=== PATIENT | male | born 1970 | race African-American/Black ===

== ENCOUNTER 2017-08-12 16:00 | Outpatient (RCR) | payer MEDICARE, OTHER | END 2017-09-04 09:07 | disposition home or self-care (01) | LOC: WSPT 16:00 | DX: S72.8X2D Other fracture of left femur, subsequent encounter for closed fracture with routine healing (principal); S72.8X1D Other fracture of right femur, subsequent encounter for closed fracture with routine healing; S12.9XXD Fracture of neck, unspecified, subsequent encounter; G89.21 Chronic pain due to trauma; V49.9XXD Car occupant (driver) (passenger) injured in unspecified traffic accident, subsequent encounter | CPT/HCPCS: G8978-GP; G8979-GP ==

== ENCOUNTER 2018-04-04 20:25 | Emergency (ER) | payer MEDICARE, MEDICAID ==
[~2018-04-04] VITALS: Ht 177.8 cm; Wt 113.2 kg
[2018-04-04 20:26] VITALS: TEMP 98.9
[2018-04-04] MEDS ORDERED: HCTZ12.5TAB PO (20:32)
[2018-04-04] MEDS ORDERED: MOBIC 7.5MG7.5 MG PO (20:32)
[2018-04-04] MEDS ORDERED: TOPROL XL 25MG25 MG PO (20:32)
[2018-04-04] MEDS ORDERED: CLARITIN 1010 MG/TAB PO (20:33)
[2018-04-04] MEDS ORDERED: AMITRIPTYLINE H50 M1 PO (20:33)
[2018-04-04] MEDS ORDERED: CYMBALTA 30MG30 MG PO (20:40)
[2018-04-04] MEDS ORDERED: NORVASC 10MG10 MG PO (20:41)
[2018-04-04 21:03] LABS: BASO % 0.2 % (0.0-2.0); EOS # 0.2 (0.0-0.7); GRAN # 10.3 (1.4-6.5); GRAN % 69.1 % (42.2-75.2); HEMATOCRIT 44.3 % (42.0-52.0); HEMOGLOBIN 14.8 g/dl (13.5-18.0); LYMPH # 2.2 (1.2-3.4); LYMPH % 14.8 % (20.0-51.0); MEAN CELL VOLUME 88 fl (80.0-100.0); MEAN CORPUSCULAR HEMOGLOBIN 29 pg (27.0-31.0); MEAN CORPUSCULAR HGB CONC 33 g/dl (33.0-37.0); MEAN PLATELET VOLUME 10.8 fl (7.4-10.4); MONO # 2.2 (0.1-0.6); MONO % 14.5 % (1.7-9.3); PLATELET COUNT 245 K/mm3 (130-400); RED BLOOD COUNT 5.05 M/mm3 (4.20-5.60); REDCELL DISTRIBUTION WIDTH-CV 13.6 % (11.5-14.5)
[2018-04-04 21:13] LABS: ALBUMIN 3.7 gm/dL (3.5-5.0); BILIRUBIN,TOTAL 0.4 mg/dL (0.0-1.0); CALCIUM 8.8 mg/dL (8.4-10.2); CREATININE, serum 1.14 mg/dL (0.66-1.25)
[2018-04-04] MEDS ORDERED: OMNICEF 300MG300 MG PO (22:10)
[2018-04-04] MEDS ORDERED: TUSS PO (22:10)
[2018-04-04 22:39] VITALS: BP 125/78; PULSE 99
== END 2018-04-04 22:50 | disposition home or self-care (01) ==
LOC: COL.ER 20:25
PROVIDERS: Emergency Medicine
DX: J40 Bronchitis, not specified as acute or chronic (principal); J32.9 Chronic sinusitis, unspecified; I10 Essential (primary) hypertension; F17.210 Nicotine dependence, cigarettes, uncomplicated; Z88.6 Allergy status to analgesic agent; Z88.8 Allergy status to other drugs, medicaments and biological substances
CPT/HCPCS: J7030

== ENCOUNTER → 2018-07-30 | Outpatient (CLI) | payer MEDICARE, MEDICAID ==
[~2018-07-30] MED LIST: AMITRIPTYLINE H50 M1 PO; CLARITIN 1010 MG/TAB PO; CYMBALTA 30MG30 MG PO; HCTZ12.5TAB PO; MOBIC 7.5MG7.5 MG PO; NORVASC 10MG10 MG PO; OMNICEF 300MG300 MG PO; TOPROL XL 25MG25 MG PO; TUSS PO
[2018-07-30 18:17] LABS: CALCIUM 9.2 mg/dL (8.4-10.2); CREATININE, serum 1.11 (0.66-1.25); POTASSIUM 4.2 mmol/L (3.4-5.0)
== END ==
LOC: ZCOL.LAB 17:12
PROVIDERS: Family Medicine
DX: I10 Essential (primary) hypertension (principal)

== ENCOUNTER 2018-10-01 10:14 | Outpatient (RCR) | payer MEDICARE, MEDICAID | END 2018-10-14 08:39 | disposition home or self-care (01) | LOC: MKS.ESL.PT 10:14 | DX: M79.606 Pain in leg, unspecified (principal); M25.569 Pain in unspecified knee; G89.29 Other chronic pain ==

== ENCOUNTER 2019-07-28 12:05 | Emergency (ER) | payer MEDICARE, MEDICAID ==
[~2019-07-28] VITALS: Ht 177.8 cm; Wt 95.5 kg
[2019-07-28 12:08] VITALS: BP 93/79; PULSE 118; TEMP 97.5
[2019-07-28 12:41] LABS: HEMATOCRIT 43.8 % (42.0-52.0); HEMOGLOBIN 14.4 g/dl (13.5-18.0); MEAN CELL VOLUME 84 fl (80.0-100.0); MEAN CORPUSCULAR HEMOGLOBIN 28 pg (27.0-31.0); MEAN CORPUSCULAR HGB CONC 33 g/dl (33.0-37.0); MEAN PLATELET VOLUME 9.4 fl (7.4-10.4); PLATELET COUNT 244 K/mm3 (130-400); RED BLOOD COUNT 5.21 M/mm3 (4.20-5.60); REDCELL DISTRIBUTION WIDTH-CV 13.7 % (11.5-14.5)
[2019-07-28 12:52] LABS: ACETAMINOPHEN < 10 ug/mL (10-30); ALANINE AMINOTRANSFERASE 23 U/L (4-49); ALBUMIN 4.3 gm/dL (3.5-5.0); ALCOHOL(ethanol),MEDICAL < 10 mg/dL; ALKALINE PHOSPHATASE 101 U/L (50-136); ANION GAP 7 mmol/L (7-16); AST,SGOT 35 U/L (15-37); BILIRUBIN,TOTAL 1.3 mg/dL (0.0-1.0); BLOOD UREA NITROGEN 15 mg/dL (9-20); CALCIUM 9.2 mg/dL (8.4-10.2); CARBON DIOXIDE 29 mmol/L (22-30); CHLORIDE 100 mmol/L (98-107); CREATININE, serum 1.05 (0.66-1.25); GLUCOSE 97 mg/dL (74-106); LIPASE 68 U/L (23-300); POTASSIUM 3.7 mmol/L (3.4-5.0); SALICYLATE < 1.0 mg/dL; SODIUM 136 mmol/L (137-145); TOTAL PROTEIN 7.7 gm/dL (6.4-8.2)
[2019-07-28 13:02] LABS: TROPONIN-I < 0.012 ng/mL (0.000-0.035)
[2019-07-28 13:10] LABS: BAND 1 % (0-10); EOSINOPHIL 3 % (0-4); NEUTROPHILS 77 % (42.0-75.2); PLATELET ESTIMATE NORMAL (NORMAL)
[2019-07-28 13:11] LABS: LYMPHOCYTE 15 % (20.0-51.0)
== END 2019-07-28 13:24 | disposition home or self-care (01) ==
LOC: COL.ER 12:05
PROVIDERS: Physician Assistant
DX: F15.10 Other stimulant abuse, uncomplicated (principal); I10 Essential (primary) hypertension; R07.9 Chest pain, unspecified; Z79.899 Other long term (current) drug therapy